=== PATIENT | male | born 1985 | race Caucasian/White ===

== ENCOUNTER 2021-06-10 16:00 | Observation (INO) | payer BC ==
[2021-06-10] MEDS ORDERED: Acetaminophen 325 MG TAB PO PRN (17:45)
[2021-06-10] MEDS ORDERED: Ondansetron ODT 4 MG TAB SL PRN (17:45)
[2021-06-10] MEDS ORDERED: Ondansetron PF 4 MG/2 ML Vial IVP PRN (17:45)
[2021-06-10 23:29] LABS: SARS-CoV-2 NAA Rapid Test Not Detected (NotDetected)
[2021-06-11] MEDS ORDERED: Ondansetron PF 4 MG/2 ML Vial IVP PRN (02:11)
[2021-06-11] MEDS ORDERED: Acetaminophen 325 MG TAB PO PRN (02:11)
[2021-06-11 04:57] LABS: Anion Gap 11 mmol/L (10-20); BUN (Urea Nitrogen) 11 mg/dL (8.9-20.6); Calc. Creatinine Clearance 145 mL/min (70-130); Calcium 9.2 mg/dL (7.8-10.44); Carbon Dioxide 25 mmol/L (22-29); Chloride 105 mmol/L (98-107); Glucose 113 mg/dL (70-105); Potassium 4.2 mmol/L (3.5-5.1); Sodium 137 mmol/L (136-145)
[2021-06-11 05:00] LABS: Band 8 % (5-11); Hemoglobin 14.9 g/dL (14.0-18.0); Lymphocytes 4 % (21-51); MDiff Complete? YES; Mean Corpuscular HGB CONC 33.5 g/dL (32.0-36.0); Mean Corpuscular Hemoglobin 32.5 pg (27.0-31.0); Mean Corpuscular Volume 97.1 fL (78.0-98.0); Mean Platelet Volume 7.2 fL (7.4-10.4); Monocytes 9 % (0-10); Neutrophil 79 % (42-75); Platelet Count 286 thou/uL (130-400); Platelet Morphology Comment Appears Adequate; RBC Distribution Width 11.4 % (11.5-14.5); RBC Morphology Normal; Red Blood Cell (RBC) Count 4.58 mill/uL (4.70-6.10); White Blood Cell (WBC) Count 5.8 thou/uL (4.8-10.8)
[2021-06-11 12:33] VITALS: BP 131/72; TEMP 98.2
[2021-06-13] MEDS ORDERED: FLU VACC QS2021-22(6MOS UP)/PF 60 MCG/0.5 ML SYRINGE IM ONE (09:00)
== END 2021-06-11 16:34 | disposition home or self-care (01) ==
LOC: ERS 16:00 → MSONC 17:24 → INTOOBSV 06-11 09:04 → OBSVTOIN 06-11 09:04
PROVIDERS: ADMIT Family Medicine; ATTEND Internal Medicine
DX: R55 Syncope and collapse (principal); G91.1 Obstructive hydrocephalus; G93.89 Other specified disorders of brain; K21.9 Gastro-esophageal reflux disease without esophagitis; G89.29 Other chronic pain; M54.9 Dorsalgia, unspecified; F17.210 Nicotine dependence, cigarettes, uncomplicated; Z79.899 Other long term (current) drug therapy; Z20.822 Contact with and (suspected) exposure to COVID-19
CPT/HCPCS: 36415; 70553; 80048; 85025; 93005; 93010; G0378; U0002

== ENCOUNTER 2021-07-02 12:19 | Outpatient (CLI) | payer BC ==
[2021-07-02 14:28] LABS: PTT 29.1 sec (22.0-33.0); Prothrombin Time 10.9 sec (9.5-12.1)
[2021-07-02 14:31] LABS: Hemoglobin 15.6 g/dL (13.5-17.5); Mean Corpuscular HGB CONC 33.3 g/dL (32.0-36.0); Mean Corpuscular Hemoglobin 31.1 pg (27.0-33.0); Mean Corpuscular Volume 93.6 fl (81.2-95.1); Mean Platelet Volume 10.1 fl (7.4-10.4); Platelet Count 475 10x3/uL (150-450); RBC Distribution Width 12.3 % (11.5-14.5); Red Blood Cell (RBC) Count 5.01 10x6/uL (4.32-5.72); White Blood Cell (WBC) Count 6.7 10x3/uL (3.5-10.5)
[2021-07-03 09:53] LABS: SARS-CoV-2 PCR by NAA Not Detected (NotDetected)
== END 2021-07-02 12:20 | disposition home or self-care (01) ==
LOC: LABBT 12:19
PROVIDERS: ATTEND Neurological Surgery
DX: Z01.812 Encounter for preprocedural laboratory examination (principal); Z20.822 Contact with and (suspected) exposure to COVID-19
CPT/HCPCS: 85027; 85610; 85730; U0003; U0005

== ENCOUNTER 2021-07-02 13:00 | Inpatient (IN) | payer BC ==
[2021-07-05] MEDS ORDERED: Lidocaine 0.5%/Epinephrine 1:200,000 50 ml Vial ONE (06:10)
[2021-07-05] MEDS ORDERED: Thrombin 5000 UNITS/5 ML VIAL ONE (06:10)
[2021-07-05] MEDS ORDERED: Bacitracin Zinc Ointment 30 gm TUBE ONE (06:10)
[2021-07-05] MEDS ORDERED: Neomycin-Polymyxin 1 ML AMP ONE (06:10)
[2021-07-05] MEDS ORDERED: Fentanyl 250 MCG/5 ML VIAL ONE (06:37)
[2021-07-05] MEDS ORDERED: levETIRAcetam in NS 100 ML ONE (06:38)
[2021-07-05] MEDS ORDERED: levETIRAcetam 500 MG/100 ML PREMIX BAG ONE (06:38)
[2021-07-05] MEDS ORDERED: Dexmedetomidine 200 MCG/2 ML VIAL ONE (06:38)
[2021-07-05] MEDS ORDERED: Propofol 1,000 MG/100 ML VIAL IV ONE (06:38)
[2021-07-05] MEDS ORDERED: Midazolam HCl 2 mg/2 ml Vial ONE (06:43)
[2021-07-05] MEDS ORDERED: Famotidine/PF 20 mg/2ml Vial ONE (06:46)
[2021-07-05] MEDS ORDERED: Promethazine HCl 25 MG/ML VIAL IM PRN ×2 (06:51→10:30)
[2021-07-05] MEDS ORDERED: Ondansetron PF 4 MG/2 ML Vial IVP PRN (06:51)
[2021-07-05] MEDS ORDERED: Cepastat Lozenges 1 LOZ PO PRN (06:51)
[2021-07-05] MEDS ORDERED: HYDROcodone/Acetaminophen 7.5/325 mg Tablet PO PRN (06:51)
[2021-07-05] MEDS ORDERED: Labetalol HCl 100 MG/20 ML VIAL SLOW IVP PRN ×2 (06:51→10:22)
[2021-07-05] MEDS ORDERED: Mag-Al 1200 mg/1200 mg/30 ML UDCUP PO PRN (06:51)
[2021-07-05] MEDS ORDERED: diphenhydrAMINE 50 MG/ML VIAL IVP PRN (06:51)
[2021-07-05] MEDS ORDERED: Morphine 4 MG/ML VIAL SLOW IVP PRN (06:57)
[2021-07-05] MEDS ORDERED: Rocuronium Bromide 10 MG/ML (10ML VIAL) ONE (07:14)
[2021-07-05] MEDS ORDERED: Ondansetron PF 4 MG/2 ML Vial ONE (07:14)
[2021-07-05] MEDS ORDERED: PHENYLEPHRINE-NS 100 MCG/ML 10 ML SYRINGE ONE (07:14)
[2021-07-05] MEDS ORDERED: PROPOFOL 200 MG/20 ML VIAL ONE (07:14)
[2021-07-05] MEDS ORDERED: Lidocaine 1% PF 5 ML VIAL ONE (07:14)
[2021-07-05] MEDS ORDERED: Dexamethasone 20 MG/5 ML VIAL ONE (07:14)
[2021-07-05] MEDS ORDERED: SUGAMMADEX SODIUM 200 MG/2 ML VIAL ONE (09:52)
[2021-07-05] MEDS ORDERED: Promethazine HCl 25 MG/ML VIAL IVPB PRN (10:30)
[2021-07-05] MEDS ORDERED: HYDROmorphone 2 MG/ML VIAL SLOW IVP PRN (10:30)
[2021-07-05] MEDS ORDERED: Ondansetron HCl/PF 4 MG/2 ML Vial IVP PRN (10:30)
[2021-07-05] MEDS ORDERED: Promethazine HCl 25 MG/ML VIAL ONE (11:03)
[2021-07-05] MEDS ORDERED: Fentanyl 100 MCG/2 ML VIAL ONE (11:21)
[2021-07-05] MEDS ORDERED: Acetaminophen 325 MG TAB ONE (13:03)
[2021-07-05] MEDS: Acetaminophen 325 MG TAB PO PRN ×2 (13:07→23:36)
[2021-07-05] MEDS ORDERED: ceFAZolin 2 GM/Dextrose 50 ML IVPB ONE (15:10)
[2021-07-05 15:54] LABS: Ref Lab Test Ordered BETA HCG ON CSF
[2021-07-05 15:55] LABS: Ref Lab Test Ordered AFP ON CSF
[2021-07-05] MEDS: ceFAZolin 2 GM/Dextrose 50 ML 2 GM in Premix Bag 1 BAG IVPB SCH ×2 (17:50→23:24)
[2021-07-05] MEDS: Sodium Chloride 0.9% 1,000 ML IV SCH ×2 (18:47→18:48)
[2021-07-06 05:24] VITALS: BMI 27.0
[2021-07-06] MEDS: Sodium Chloride 0.9% 1,000 ML IV SCH ×2 (05:39→18:25)
[2021-07-06] MEDS: HYDROcodone/Acetaminophen 10/325 mg Tablet PO PRN ×2 (07:49→18:23)
[2021-07-06] MEDS ORDERED: FLU VACC QS2021-22(6MOS UP)/PF 60 MCG/0.5 ML SYRINGE IM ONE (09:00)
[2021-07-06] MEDS: AcetaZOLAMIDE ER 500 MG CAP PO SCH ×2 (10:15→20:14)
[2021-07-06] MEDS: Acetaminophen 325 MG TAB PO PRN (13:13)
[2021-07-07] MEDS: Acetaminophen 325 MG TAB PO PRN (01:41)
[2021-07-07] MEDS: Sodium Chloride 0.9% 1,000 ML IV SCH ×3 (04:37→20:19)
[2021-07-07] MEDS: AcetaZOLAMIDE ER 500 MG CAP PO SCH ×2 (10:39→21:34)
[2021-07-08] MEDS: Acetaminophen 325 MG TAB PO PRN (01:04)
[2021-07-08] MEDS: Sodium Chloride 0.9% 1,000 ML IV SCH (04:55)
[2021-07-08 06:14] VITALS: TEMP 98.3
[2021-07-08] MEDS: AcetaZOLAMIDE ER 500 MG CAP PO SCH (09:33)
[2021-07-08 10:32] VITALS: BP 149/93
== END 2021-07-08 13:57 | disposition home or self-care (01) | DRG 27 ==
LOC: SURG A 07-05 05:42 → CCU 07-05 17:21
PROVIDERS: ADMIT Neurological Surgery; ATTEND Neurological Surgery
PROC: 00164ZB Bypass Cerebral Ventricle to Cerebral Cisterns, Percutaneous Endoscopic Approach (ICD-10-PCS; principal; 2021-07-05)
PROC: 00B03ZX Excision of Brain, Percutaneous Approach, Diagnostic (ICD-10-PCS; 2021-07-05)
DX: G91.1 Obstructive hydrocephalus (principal); Z20.822 Contact with and (suspected) exposure to COVID-19; K21.9 Gastro-esophageal reflux disease without esophagitis; G89.29 Other chronic pain; M54.9 Dorsalgia, unspecified; F17.210 Nicotine dependence, cigarettes, uncomplicated; Z01.812 Encounter for preprocedural laboratory examination
CPT/HCPCS: 70450; 85027; 85610; 85730; 88307; C1713; C1729; J0690; J1100; J1953; J2001; J2250; J2405; J2550; J2704; J3010; J7050; S0028; U0003; U0005

== ENCOUNTER 2021-08-14 11:31 | Outpatient (CLI) | payer BC ==
[~2021-08-14 11:31] MED LIST: Magnevist 469MG/ML 20 ML VIAL ONE
== END 2021-08-14 11:32 | disposition home or self-care (01) ==
LOC: MRI 11:31
PROVIDERS: ATTEND Neurological Surgery
DX: C71.9 Malignant neoplasm of brain, unspecified (principal); G93.89 Other specified disorders of brain
CPT/HCPCS: 70553; A9579

== ENCOUNTER 2022-02-20 13:49 | Outpatient (CLI) | payer BC ==
[2022-02-20] MEDS ORDERED: Magnevist 469MG/ML 20 ML VIAL ONE (16:13)
== END 2022-02-20 13:50 | disposition home or self-care (01) ==
LOC: MRI 13:49
PROVIDERS: ATTEND Neurological Surgery
DX: D44.5 Neoplasm of uncertain behavior of pineal gland (principal); R22.0 Localized swelling, mass and lump, head; G91.1 Obstructive hydrocephalus
CPT/HCPCS: 70553; A9579